=== PATIENT | female | born 1975 | race Caucasian/White ===

== ENCOUNTER → 2016-08-15 | Outpatient (CLI) | payer BC ==
[~2016-08-15] MED LIST: CLIN-78 PO; HYDR-3702 PO; [UNRECOGNIZED DRUG - CODE] TP
--- NOTE | 2016-08-15 13:38 | Diagnostic Imaging Report ---
PROCEDURE: MRI right joint lower extremity without contrast. TECHNIQUE: Multiplanar, multisequence non contrast-enhanced MRI of the right knee was accomplished. INDICATION: Medial knee pain. COMPARISON: 04/04/2014 FINDINGS: Anterior and posterior cruciate ligaments are intact. Some fluid is seen medial to the MCL. The MCL is intact. The popliteus tendon, fibular collateral ligament, iliotibial tract, and biceps femoris tendons are intact. Partial lateral meniscectomy changes are present. Residual meniscus is mostly in the posterior horn and appears intact. Medial meniscus is intact. Focal cartilage irregularities are present involving the medial femoral condylar articular cartilage. These consist of small 1-2 mm defects. There is a focal defect in the posterior aspect of the lateral femoral condylar articular cartilage, measuring a couple of millimeters in width. Marginal osteophyte formation of the lateral distal femur and lateral proximal tibia are present. Subcortical marrow signal abnormality is present at the medial aspect of the medial femoral condyle just beneath the MCL. A 1.8 x 1 x 1.2 cm curvilinear marrow signal abnormality is present involving the posterior aspect of the medial femoral condyle. Overlying articular cartilage at that region is intact. The patellofemoral cartilage does not show any significant abnormality. A bipartite patella is present. Minimal joint effusion is present. Patellar and quadriceps tendons are intact. IMPRESSION: 1. Partial lateral meniscectomy changes. No tear of the residual meniscus. 2. 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 3. 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 4. Small joint effusion. Dictated by: Dictated on workstation # [id number]
== END ==
LOC: RAD 11:26
PROVIDERS: ATTEND Physician Assistant
DX: M25.561 Pain in right knee (principal); M25.461 Effusion, right knee; M17.11 Unilateral primary osteoarthritis, right knee
CPT/HCPCS: 73721